=== PATIENT | female | born 1945 | race Caucasian/White ===

== ENCOUNTER 2018-06-13 05:46 | Day surgery (SDC) | payer MEDICARE, MEDICAID ==
[2018-06-13] MEDS ORDERED: Fentanyl 100 MCG/2 ML VIAL ONE (06:23)
[2018-06-13] MEDS ORDERED: Sodium Chloride 0.9% 100 ML ONE (06:25)
[2018-06-13] MEDS ORDERED: cefOXitin 2 GM VIAL ONE (06:25)
[2018-06-13] MEDS ORDERED: Ketorolac Tromethamine 30 MG/ML VIAL ONE (06:25)
[2018-06-13 07:27] LABS: Anion Gap 15 mmol/L (10-20); BUN (Urea Nitrogen) 15 mg/dL (9.8-20.1); Calc. Creatinine Clearance 100 mL/min (70-130); Calcium 9.7 mg/dL (7.8-10.44); Carbon Dioxide 25 mmol/L (23-31); Chloride 106 mmol/L (98-107); Estimated GFR-MDRD 64; Glucose 129 mg/dL (83-110); Potassium 3.9 mmol/L (3.5-5.1); Sodium 142 mmol/L (136-145)
[2018-06-13 07:55] LABS: #Basophils 0.1 thou/uL (0.0-0.2); #Eosinphils 0.1 thou/uL (0.0-0.7); #Lymphocytes 1.4 thou/uL (1.20-3.40); #Monocytes 0.4 thou/uL (0.11-0.59); %Basophils 1.7 % (0.0-1.0); %Eosinophils 1.7 % (0.0-10.0); %Lymphocytes 23.2 % (21.0-51.0); %Monocytes 6.7 % (0.0-10.0); %Neutrophils 66.7 % (42.0-75.0); Hemoglobin 14.2 g/dL (12.0-16.0); Mean Corpuscular HGB CONC 32.6 g/dL (32.0-36.0); Mean Corpuscular Hemoglobin 27.8 pg (27.0-31.0); Mean Corpuscular Volume 85.3 fL (78.0-98.0); Platelet Count 110 thou/uL (130-400); RBC Distribution Width 12.6 % (11.5-14.5); Red Blood Cell (RBC) Count 5.12 mill/uL (4.20-5.40); White Blood Cell (WBC) Count 6.1 thou/uL (4.8-10.8)
--- NOTE | 2018-06-13 08:08 | RAD ---
CHEST TWO VIEWS: Comparison: 04-25-09 History: Pre-operative exam. FINDINGS: Normal cardiac silhouette. The lungs and pleural spaces are clear. No pneumothorax or osseous abnorma lities. IMPRESSION: No acute cardiopulmonary process. POS: H
[2018-06-13] MEDS ORDERED: Bupivacaine/Epinephrine 0.25% 30 ML VIAL ONE (08:32)
[2018-06-13] MEDS ORDERED: Lidocaine 2% Jelly 5 ML TUBE ONE (08:45)
[2018-06-13] MEDS ORDERED: PROPOFOL 200 MG/20 ML VIAL ONE (13:40)
[2018-06-13] MEDS ORDERED: Glycopyrrolate 0.2 MG/ML 5 ML SYRINGE ONE (13:40)
[2018-06-13] MEDS ORDERED: Rocuronium Bromide 10 MG/ML (10ML VIAL) ONE (13:40)
[2018-06-13] MEDS ORDERED: ePHEDrine 50 MG/ML VIAL ONE (13:40)
[2018-06-13] MEDS ORDERED: Ondansetron PF 4 MG/2 ML Vial ONE (13:40)
[2018-06-13] MEDS ORDERED: Lidocaine 1% PF 5 ML VIAL ONE (13:40)
--- NOTE | 2018-06-14 07:18 | EKG ---
Test Reason : PREOP Blood Pressure : / mmHG Vent. Rate : 052 BPM Atrial Rate : 052 BPM P-R Int : 174 ms QRS Dur : 106 ms QT Int : 506 ms P-R-T Axes : 050 -12 058 degrees QTc Int : 470 ms Sinus bradycardia with occasional Premature ventricular complexes Otherwise normal ECG When compared with ECG of 25-APR-2009 03:47, Premature ventricular complexes are now Present Questionable change in QRS axis Confirmed by KRISTOPHER GOMES ([id number]) on 06/14/2018 7:17:55 AM Referred By: EDUARD Confirmed By:KRISTOPHER GOMES
--- NOTE | 2018-06-14 13:17 | OP ---
DATE OF PROCEDURE: 06/13/2018 PREOPERATIVE DIAGNOSIS: Large circumferential internal hemorrhoids. POSTOPERATIVE DIAGNOSIS: Large circumferential internal hemorrhoids. OPERATION PERFORMED: PPH stapled hemorrhoidectomy. ANESTHESIA: General endotracheal. INDICATIONS FOR PROCEDURE: The patient is an obese 73-year-old white female. She presents with progressive problems with her hemorrhoids. After discussing options with the patient and her family, I have elected to attempt to treat this with stapled hemorrhoidectomy. She apparently has a very low pain threshold and for this reason, I have recommended against a traditional hemorrhoidectomy. DESCRIPTION OF OPERATION: Informed consent was obtained. The patient was taken to the operating room where general anesthesia obtained with the patient in supine position. She was placed in dorsal lithotomy using candy-cane stirrups. Perianal area was prepped with Betadine and draped in sterile fashion. The patient unfortunately had bulging circumferential hemorrhoids. This was not quite full-thickness prolapse, but it was almost prolapsed. I infiltrated 0.25% Marcaine with epinephrine in a 4-quadrant intersphincteric fashion. I then placed the anal retractor within the anal canal and secured in place with 4 interrupted sutures of 2-0 Vicryl. The partial obturator was used to place a pursestring suture of 2-0 Prolene just above the dentate line. The staple was then obtained and maximally opened. The anvil of the stapler was positioned above the pursestring suture and the suture was then secured around the post of the stapler. The stapler was then closed with traction on the suture. The staple was then fired, removing the tissue within the stapler while creating the staple line. Staple was removed and the specimen was inspected and found to be of appropriate width and thickness. The staple line was inspected and there were a couple of areas of minor oozing and these were repaired with interrupted sutures of 3-0 Vicryl. The anal retractor was then removed. Gelfoam was placed up within the anal canal. Dry gauze dress was placed externally along with mesh pants. There were no complications. The patient tolerated the procedure well and was taken to recovery room in stable condition. Job ID: [id number]
== END 2018-06-13 11:34 | disposition home or self-care (01) ==
LOC: SDC 05:46
PROVIDERS: ATTEND Specialist
PROC: 06BY3ZC Excision of Hemorrhoidal Plexus, Percutaneous Approach (ICD-10-PCS; principal; 2018-06-13)
DX: K64.8 Other hemorrhoids (principal); I10 Essential (primary) hypertension; E11.9 Type 2 diabetes mellitus without complications; M19.90 Unspecified osteoarthritis, unspecified site; F41.9 Anxiety disorder, unspecified; F33.9 Major depressive disorder, recurrent, unspecified; F03.90 Unspecified dementia, unspecified severity, without behavioral disturbance, psychotic disturbance, mood disturbance, and anxiety; Z79.4 Long term (current) use of insulin; Z79.899 Other long term (current) drug therapy
CPT/HCPCS: 36416; 71046; 80048; 85025; 93005; 93010; J0131; J0694; J1885; J2001; J2405; J2704; J3010; J3490